=== PATIENT | female | born 2000 | race Caucasian/White ===

== ENCOUNTER 2023-04-11 02:12 | Emergency (ER) | payer OTHER ==
[~2023-04-11] VITALS: Ht 165.1 cm; Wt 54.4 kg
[~2023-04-11 02:12] MED LIST: IBUPROFEN; KEFLEX
[2023-04-11 02:19] VITALS: BP 130/80; PULSE 104; RESP 20; TEMP 97.8; O2SAT 98
[2023-04-11 02:54] LABS: FLU B ANTIGEN negative (NEGATIVE)
[2023-04-11 02:59] LABS: FLU A ANTIGEN POSITIVE (NEGATIVE)
[2023-04-11 03:00] VITALS: O2SAT 98
[2023-04-11] MEDS ORDERED: TAM75 PO (03:11)
== END 2023-04-11 03:23 | disposition home or self-care (01) ==
LOC: MED 02:12
DX: J10.1 Influenza due to other identified influenza virus with other respiratory manifestations (principal); Z20.822 Contact with and (suspected) exposure to COVID-19; R00.0 Tachycardia, unspecified; F41.9 Anxiety disorder, unspecified; Z79.899 Other long term (current) drug therapy; Z79.2 Long term (current) use of antibiotics
CPT/HCPCS: 99283